=== PATIENT | female | born 1995 | race Caucasian/White ===

== ENCOUNTER 2022-01-28 14:53 | Emergency (ER) | payer MEDICAID, OTHER ==
[~2022-01-28] VITALS: Ht 154.9 cm; Wt 74.4 kg
[2022-01-28 15:44] LABS: *BILIRUBIN,URIN NEGATIVE (NEGATIVE); *BLOOD, URINE NEGATIVE (NEGATIVE); *CLARITY,URINE CLEAR (CLEAR); *COLOR,URINE YELLOW (YELLOW); *KETONES,URINE NEGATIVE (NEGATIVE); *URINE HCG, QUAL NEG (NEGATIVE); *UROBILINOGEN,URINE 0.2 E.U./dl (NORMAL); LEUKOCYTE ESTERASE ,URINE NEGATIVE (NEGATIVE); NITRITE, URINE NEGATIVE (NEGATIVE); UGLUCOSE NEGATIVE (NEGATIVE)
--- NOTE | 2022-01-28 16:21 | NUR ---
Gave pt d/c instructions, pt verbalized understanding.
[2022-01-30 02:06] LABS: *GC NAA Negative (Negative)
[2022-01-30 23:06] LABS: *TRIC.VAG. NAA Negative (Negative)
== END 2022-01-28 16:22 | disposition home or self-care (01) ==
LOC: ER 14:53
DX: R10.2 Pelvic and perineal pain (principal); Z97.5 Presence of (intrauterine) contraceptive device; E11.9 Type 2 diabetes mellitus without complications
CPT/HCPCS: 76856; 84703; 87491; A4663